=== PATIENT | male | born 1995 | race Caucasian/White ===

== ENCOUNTER → 2016-10-10 | Outpatient (REF) | payer MEDICAID | LOC: M LAB REF 09:48 | PROVIDERS: ATTEND Physician Assistant Medical | DX: J02.9 Acute pharyngitis, unspecified (principal) ==

== ENCOUNTER 2017-07-30 11:36 | Emergency (ER) | payer OTHER ==
[2017-07-30] MEDS: KETOROLAC 60 MG/2 ML VIAL (J1885) IM (14:18)
== END 2017-07-30 14:40 | disposition home or self-care (01) ==
LOC: M ED 11:36
DX: S33.5XXA Sprain of ligaments of lumbar spine, initial encounter (principal); S90.31XA Contusion of right foot, initial encounter; S90.32XA Contusion of left foot, initial encounter; W13.9XXA Fall from, out of or through building, not otherwise specified, initial encounter; Y92.099 Unspecified place in other non-institutional residence as the place of occurrence of the external cause; Y93.39 Activity, other involving climbing, rappelling and jumping off; Z79.899 Other long term (current) drug therapy
CPT/HCPCS: J1885

== ENCOUNTER → 2017-12-17 | Outpatient (REF) | payer OTHER | LOC: M LAB REF 09:32 | DX: J02.9 Acute pharyngitis, unspecified (principal) | CPT/HCPCS: 87430 ==

== ENCOUNTER → 2019-10-02 | Outpatient (CLI) | payer OTHER ==
[~2019-10-02] MED LIST: CITA40TA4 PO; MINO100C4 PO; NAPR-885 PO; ZOFR4TAB14 PO
== END ==
LOC: M LABSMTC 11:52
PROVIDERS: ATTEND Family Medicine
DX: Z11.59 Encounter for screening for other viral diseases (principal); Z20.828 Contact with and (suspected) exposure to other viral communicable diseases

== ENCOUNTER → 2020-09-17 | Outpatient (CLI) | payer SELFPAY | LOC: M LABSMTC 13:16 | PROVIDERS: ATTEND Pediatrics | DX: Z11.52 Encounter for screening for COVID-19 (principal) ==